=== PATIENT | male | born 1990 | race Caucasian/White ===

== ENCOUNTER 2023-08-02 16:45 | Emergency (ER) | payer SELFPAY ==
--- NOTE | ~2023-08-02 | XR_ITS ---
EXAMINATION: [id number] Exam Date/Time: 08/02/2023 17:13 CDT HISTORY: FELL SIDEWAYS ONTO BRICKS 08/01/23. PAIN. Comparison: None available. RESULT: Lines, tubes, and devices: None. Lungs and pleura: Clear. Cardiothymic silhouette: Stable. Other: No acute upper abdominal finding. Minimally displaced transverse right posterolateral 10th ri b fracture. IMPRESSION: No acute cardiopulmonary process. Minimally displaced transverse right posterolateral 10th rib fractu re Reviewed, dictated and finalized at location K. IMPRESSION: No acute cardiopulmonary process. Minimally displaced transverse right posterol ateral 10th rib fracture
[2023-08-02 17:04] VITALS: BP 154/84; PULSE 78; RESP 20; TEMP 37; O2SAT 98
--- NOTE | 2023-08-02 17:36 | ED.FALL ---
HPI - Fall General Chief Complaint: Wound/Laceration Stated Complaint: Rib Injury Time Seen by Provider: 08/02/23 17:30 Source: patient and RN notes reviewed Mode of arrival: ambulatory Limitations: no limitations History of Present Illness HPI Narrative: Yesterday patient fell onto some bricks of a fire pit, striking his right posterior lateral ribs. Denies shortness of breath. Currently rates pain 3/10, which increases with deep breathing. He has been taking ibuprofen with some relief. Related Data Home Medications Medication Instructions Recorded Confirmed No Home Medications 08/02/23 08/02/23 Allergies Allergy/AdvReac Type Severity Reaction Status Date / Time No Known Allergies Allergy Unverified 08/02/23 17:29 Review of Systems Review of Systems: CONSTITUTIONAL: Denies body aches, fever, chills, or sweats. EYES: Denies visual changes, redness, or discharge. ENT: Denies rhinorrhea, congestion, sore throat, or otalgia. CARDIOVASCULAR: Denies chest pain, palpitations, or edema. RESPIRATORY: Denies cough or dyspnea.+ rib pain GASTROINTESTINAL: Denies abdominal pain, nausea, vomiting, or diarrhea. GENITOURINARY: Denies dysuria or hematuria. SKIN: Denies rash, itching, or wounds. MUSCULOSKELETAL: Denies back pain, joint pain, or myalgia. NEUROLOGIC: Denies headache, numbness, tingling, or weakness. PSYCH: Denies depression or anxiety. PMFSH Comments At time of signature, I have reviewed and agree with nursing past medical, surgical, social and family history unless otherwise noted. Please see nursing chart for further information. There is no relevant family history pertinent to the presenting complaint Exam Narrative: GENERAL: Well-appearing, well-nourished, and in no acute distress. HEAD: Normocephalic, atraumatic. EYES: EOMI. No redness or drainage. Conjunctivae normal. ENT: Mucous membranes pink and moist. NECK: Normal AROM. CHEST: No respiratory distress. Clear to auscultation. Mild point tenderness to the right lower posterior lateral rib area with some mild ecchymosis. No crepitus or step-off noted. HEART: Regular rate and rhythm. No murmur appreciated. MUSCULOSKELETAL: No bony tenderness. EXTREMITIES: Normal range of motion. No edema. SKIN: Warm, dry, no rash. Capillary refill normal. Normal skin turgor. NEURO: No focal deficits. Alert and oriented x3. Gait steady. PSYCH: Normal affect. No signs of depression or anxiety. Course Course Level of Care: Express Care Visit Vital Signs Vital signs: Vital Signs Temperature 98.6 F 08/02/23 17:04 Pulse Rate 78 08/02/23 17:04 Respiratory Rate 20 08/02/23 17:04 Blood Pressure 154/84 H 08/02/23 17:04 Pulse Oximetry 98 08/02/23 17:04 Oxygen Delivery Room Air 08/02/23 17:04 Temperature 98.6 F 08/02/23 17:04 Pulse Rate 78 08/02/23 17:04 Respiratory Rate 20 08/02/23 17:04 Blood Pressure 154/84 H 08/02/23 17:04 Pulse Oximetry 98 08/02/23 17:04 Oxygen Delivery Room Air 08/02/23 17:04 Reviewed MDM - Fall MDM Narrative Medical decision making narrative: X-ray shows minimally displaced 10th rib fracture. Discussed [id number] medication use and duration of pain. Anticipatory guidance given. Differential Diagnosis Differential diagnosis: Likely other (Rib fracture, rib contusion) Imaging Data Radiologist's impression: ITS Impressions Ribs w/Chest X-Ray 08/02/23 18:08 IMPRESSION: No acute cardiopulmonary process. Minimally displaced transverse right posterolateral 10th rib fracture Critical Care Time Critical Care Time Critical Care Time: No Discharge Plan Discharge Clinical Impression: Right rib fracture Qualifiers: Encounter type: initial encounter Rib fracture type: single rib Fracture type: closed Qualified Code(s): S22.31XA - Fracture of one rib, right side, initial encounter for closed fracture Patient Disposition: Home, Self-Care Condition:
== END 2023-08-02 18:20 | disposition home or self-care (01) ==
PROVIDERS: Emergency Provider Nurse Practitioner; PCP Internal Medicine
DX: S22.31XA Fracture of one rib, right side, initial encounter for closed fracture (principal); S27.9XXA Injury of unspecified intrathoracic organ, initial encounter; W19.XXXA Unspecified fall, initial encounter
CPT/HCPCS: 71101; 99203; G0463